=== PATIENT | female | born 1965 | race Caucasian/White ===

== ENCOUNTER 2016-09-04 15:43 | Emergency (ER) | payer BC, MEDICAID ==
[2016-09-04] MEDS ORDERED: BACITRACIN ZINC OINTMENT 15 GM TP ONE (16:22)
--- NOTE | 2016-09-04 16:24 | ER Document Report ---
ED Head/Face/Scalp Injury - General Chief Complaint: Head Injury without LOC Stated Complaint: FALL;HEAD INJURY Time Seen by Provider: 09/04/16 16:16 Notes: Patient is a 51-year-old female, past medical history hypertension, left ear implant, presents after she slipped off the back of a [employer] truck and landed on her forehead. Also complaining of left big toe pain. She denies LOC, nausea , vomiting, neck pain, blood thinner use, blurry vision, focal weakness, numbness, ataxia or abdominal pain. TRAVEL OUTSIDE OF THE [place] IN LAST 30 DAYS: No - Related Data Allergies/Adverse Reactions: pork derived (porcine) Allergy (Severe, Verified 09/04/16 16:14) Anaphylaxis amlodipine Allergy (Verified 09/04/16 16:14) Swelling of hands and/or feet budesonide [From Symbicort] Allergy (Verified 09/04/16 16:14) Shortness of Breath duloxetine Allergy (Verified 09/04/16 16:14) Shortness of Breath formoterol [From Symbicort] Allergy (Verified 09/04/16 16:14) Shortness of Breath iodine Allergy (Verified 09/04/16 16:14) Hives Penicillins Allergy (Verified 09/04/16 16:14) theophylline Allergy (Verified 09/04/16 16:14) cefdinir [From Omnicef] Adverse Reaction (Verified 09/04/16 16:14) Diarrhea fluoxetine Adverse Reaction (Verified 09/04/16 16:14) Anxiety metformin Adverse Reaction (Verified 09/04/16 16:14) rosuvastatin Adverse Reaction (Verified 09/04/16 16:14) sertraline [From Zoloft] Adverse Reaction (Verified 09/04/16 16:14) Diarrhea Tetracyclines Adverse Reaction (Verified 09/04/16 16:14) VOMITING tramadol Adverse Reaction (Verified 09/04/16 16:14) zafirlukast Adverse Reaction (Verified 09/04/16 16:14) Dizziness Past Medical History - General Information source: Patient - Social History Smoking Status: Never Smoker Chew tobacco use (# tins/day): No Frequency of alcohol use: Rare Drug Abuse: None Family History: Reviewed & Not Pertinent Patient has suicidal ideation: No Patient has homicidal ideation: No Pulmonary Medical History: Reports: Hx Asthma Renal/ Medical History: Denies: Hx Peritoneal Dialysis GI Medical History: Reports: Hx Gastroesophageal Reflux Disease Musculoskeltal Medical History: Reports Hx Arthritis Review of Systems - Review of Systems Notes: REVIEW OF SYSTEMS: CONSTITUTIONAL: -fevers, -chills EENT: -eye pain, -difficulty swallowing, -nasal congestion CARDIOVASCULAR:-chest pain, -syncope. RESPIRATORY: -cough, -SOB GASTROINTESTINAL: -abdominal pain, - nausea, -vomiting, -diarrhea GENITOURINARY: -dysuria, -hematuria MUSCULOSKELETAL: -back pain, -neck pain SKIN: -rash or skin lesions. HEMATOLOGIC: -easy bruising or bleeding. LYMPHATIC: -swollen, enlarged glands. NEUROLOGICAL: -altered mental status or loss of consciousness, +headache, - neurologic symptoms PSYCHIATRIC: -anxiety, -depression. ALL OTHER SYSTEMS REVIEWED AND NEGATIVE. Physical Exam - Vital signs Vitals: Temp Pulse Resp BP Pulse Ox 97.8 F 98 18 126/80 H 98 09/04/16 16:08 09/04/16 16:08 09/04/16 16:08 09/04/16 16:08 09/04/16 16:08 - Notes Notes: PHYSICAL EXAMINATION: GENERAL: Well-appearing, well-nourished and in no acute distress. HEAD: Forehead contusion and abrasions EYES: Pupils equal round and reactive to light, extraocular movements intact, sclera anicteric, conjunctiva are normal. ENT: nares patent, oropharynx clear without exudates. Moist mucous membranes. NECK: Normal range of motion, supple without lymphadenopathy LUNGS: Breath sounds clear to auscultation bilaterally and equal. No wheezes rales or rhonchi. HEART: Regular rate and rhythm without murmurs ABDOMEN: Soft, nontender, normoactive bowel sounds. No guarding, no rebound. No masses appreciated. EXTREMITIES: Contusion over left big toe, normal range of motion, no pitting or edema. No cyanosis. NEUROLOGICAL: Cranial nerves grossly intact. Normal speech, normal gait. Normal sensory and motor exams. PSYCH: Normal mood, normal affect. SKIN: Superficial abrasions and contusion over forehead Course - Re-evaluation Re-evalutation: Patient appears well. Her head CT is negative for any skull fractures or intracranial bleed. Hematoma and abrasions cleaned and bacitracin applied. She does have a distal left toe fracture. Toes robe taped and will have her follow-up with orthopedics and her primary care physician. - Vital Signs Vital signs: Temp Pulse Resp BP Pulse Ox 97.8 F 98 18 126/80 H 98 09/04/16 16:08 09/04/16 16:08 09/04/16 16:08 09/04/16 16:08 09/04/16 16:08 - Diagnostic Test Radiology reviewed: Image reviewed, Reports reviewed Radiology results interpreted by me: Left foot x-ray: non-displaced distal great toe fracture Head CT: NAD Discharge - Discharge Clinical Impression: Fractured great toe Qualifiers: Encounter type: initial encounter Fracture type: closed Phalanx: distal Fracture alignment: nondisplaced Laterality: left Qualified Code(s): S92.425A - Nondisplaced fracture of distal phalanx of left great toe, initial encounter for closed fracture Traumatic hematoma of forehead Qualifiers: Encounter type: initial encounter Qualified Code(s): S00.83XA - Contusion of other part of head, initial encounter Condition: Stable Disposition: HOME, SELF-CARE Additional Instructions: Fractured Toe You have fractured your toe. Although this fracture doesn't need a cast or splint, emergency evaluation was needed to assess the straightness of the bones and joints. Reduction ("setting") is necessary for toe fractures which are crooked or twisted. A toe fracture will heal in about three weeks. Usually, the fractured toe is taped to the next toe. The second toe acts as a moving splint to protect the broken one. Ice and elevation help during the first 48 hours. You may need crutches at first if walking is painful. When you begin walking, be careful NOT to do things that hurt. If weight bearing is not comfortable within a few days, you may require a special shoe, walking boot, or cast. Call the doctor or return at once if severe swelling, severe pain, or numbness develop in the toe, or if you suspect you may have re-injured it. Contusion Your injury has resulted in a contusion -- a crushing of the deep tissues. No injury to important structures was detected during the physician's exam. Contusions vary in the amount of pain they cause, and in the length of time required for healing. Typically, the area will become bruised, and will remain painful to touch for two or three weeks. However, most patients are back to working and playing within a few days. After the initial period of rest and cold-packs, your symptoms (together with the doctor's recommendations) will determine how rapidly you can get back to full activity. Usually this means "do what feels okay, but don't do things that hurt." If re-examination was recommended, it's important to follow up as instructed. Call the doctor or return any time if pain increases, if swelling becomes severe, if you develop numbness or weakness in an injured extremity, or if any other alarming symptoms occur.
--- NOTE | 2016-09-04 16:43 | RADIOLOGY REPORT (SQ) ---
EXAM DESCRIPTION: FOOT LEFT COMPLETE COMPLETED DATE/TIME: 09/04/2016 4:34 pm REASON FOR STUDY: left big toe injury COMPARISON: None. NUMBER OF VIEWS: Three views. TECHNIQUE: AP, lateral and oblique radiographic images acquired of the left foot. LIMITATIONS: None. FINDINGS: MINERALIZATION: Normal. BONES: There is a subtle essentially nondisplaced fracture of the distal phalanx of the great toe. F racture is lateral in location and does extend through the articular surface. JOINTS: No effusions. SOFT TISSUES: No soft tissue swelling. No foreign body. OTHER: No other significant finding. IMPRESSION: Fracture of the distal phalanx of the great toe as described. TECHNICAL DOCUMENTATION: JOB ID: [id number] [email or web address]- All Rights Reserved
--- NOTE | 2016-09-04 17:01 | RADIOLOGY REPORT (SQ) ---
EXAM DESCRIPTION: CT HEAD WITHOUT COMPLETED DATE/TIME: 09/04/2016 4:50 pm REASON FOR STUDY: head injury COMPARISON: None. TECHNIQUE: Axial images acquired through the brain without intravenous contrast. Images reviewed wi th bone, brain and subdural windows. Images stored on PACS. All CT scanners at this facility use dose modulation, iterative reconstruction, and/or weight based d osing when appropriate to reduce radiation dose to as low as reasonably achievable (ALARA). [facility]: Dose Right [facility]: CareDose [facility]: Dose Right [facility]: Teradose 4D [facility]: [employer] RADIATION DOSE: 64.61 mGy. LIMITATIONS: None. FINDINGS: VENTRICLES: Normal size and contour. CEREBRUM: No masses. No hemorrhage. No midline shift. Normal tafoya/white matter differentiation. N o evidence for acute infarction. CEREBELLUM: No masses. No hemorrhage. No alteration of density. No evidence for acute infarction. EXTRAAXIAL SPACES: No fluid collections. No masses. ORBITS AND GLOBE: No intra- or extraconal masses. Normal contour of globe without masses. CALVARIUM: No fracture. PARANASAL SINUSES: No fluid or mucosal thickening. SOFT TISSUES: No mass or hematoma. OTHER: No other significant finding. IMPRESSION: NORMAL BRAIN CT WITHOUT CONTRAST. TECHNICAL DOCUMENTATION: JOB ID: [id number] Quality ID # [id number]: Final reports with documentation of one or more dose reduction techniques (e.g., Au tomated exposure control, adjustment of the mA and/or kV according to patient size, use of iterative reconstruction technique) 2010 [employer]- All Rights Reserved
[2016-09-04 17:25] VITALS: BP 125/80
== END 2016-09-04 17:16 | disposition home or self-care (01) ==
LOC: ER 15:43
DX: S92.425A Nondisplaced fracture of distal phalanx of left great toe, initial encounter for closed fracture (principal); S00.83XA Contusion of other part of head, initial encounter; W17.89XA Other fall from one level to another, initial encounter; J45.909 Unspecified asthma, uncomplicated; Z88.8 Allergy status to other drugs, medicaments and biological substances; Z88.0 Allergy status to penicillin; Z88.1 Allergy status to other antibiotic agents; Z87.892 Personal history of anaphylaxis; Z91.018 Allergy to other foods
CPT/HCPCS: 99284; 73630; 70450; J3490

== ENCOUNTER 2018-01-29 19:57 | Emergency (ER) | payer BC ==
--- NOTE | 2018-01-29 20:25 | ER Document Report ---
ED Medical Screen (RME) - General Chief Complaint: Headache Stated Complaint: HEADACHE Time Seen by Provider: 01/29/18 20:10 Mode of Arrival: Ambulatory Information source: Patient Notes: 52-year-old female presents emergency department with complaints of a headache for the last 7 days. Patient states that she saw her primary care physician a week ago for asthma. She was started on prednisone. Patient states that she started the prednisone and the headache began. She states that over the last 7 days the headache has been gradually worsening in intensity. She describes it as a throbbing sensation that starts in the occipital area and radiates to the forehead. She denies any alleviating or exacerbating factors. Patient began having associated chills, nausea, ataxia, and difficulty concentrating today. I have greeted and performed a rapid initial assessment of this patient. A comprehensive ED assessment and evaluation of the patient, analysis of test results and completion of the medical decision making process will be conducted by additional ED providers. PHYSICAL EXAMINATION: GENERAL: Well-appearing, well-nourished and in no acute distress. HEAD: Atraumatic, normocephalic. EYES: Pupils equal round extraocular movements intact, conjunctiva are normal. ENT: Nares patent NECK: Normal range of motion LUNGS: No respiratory distress Musculoskeletal: Normal range of motion NEUROLOGICAL: Normal speech, finger to nose normal. PSYCH: Normal mood, normal affect. SKIN: Warm, Dry, normal turgor, no rashes or lesions noted. TRAVEL OUTSIDE OF THE [place] IN LAST 30 DAYS: No - Related Data Allergies/Adverse Reactions: pork derived (porcine) Allergy (Severe, Verified 09/04/16 16:14) Anaphylaxis amlodipine Allergy (Verified 09/04/16 16:14) Swelling of hands and/or feet budesonide [From Symbicort] Allergy (Verified 09/04/16 16:14) Shortness of Breath duloxetine Allergy (Verified 09/04/16 16:14) Shortness of Breath formoterol [From Symbicort] Allergy (Verified 09/04/16 16:14) Shortness of Breath iodine Allergy (Verified 09/04/16 16:14) Hives Penicillins Allergy (Verified 09/04/16 16:14) theophylline Allergy (Verified 09/04/16 16:14) cefdinir [From Omnicef] Adverse Reaction (Verified 09/04/16 16:14) Diarrhea fluoxetine Adverse Reaction (Verified 09/04/16 16:14) Anxiety metformin Adverse Reaction (Verified 09/04/16 16:14) rosuvastatin Adverse Reaction (Verified 09/04/16 16:14) sertraline [From Zoloft] Adverse Reaction (Verified 09/04/16 16:14) Diarrhea Tetracyclines Adverse Reaction (Verified 09/04/16 16:14) VOMITING tramadol Adverse Reaction (Verified 09/04/16 16:14) zafirlukast Adverse Reaction (Verified 09/04/16 16:14) Dizziness Past Medical History Pulmonary Medical History: Reports: Hx Asthma Renal/ Medical History: Denies: Hx Peritoneal Dialysis GI Medical History: Reports: Hx Gastroesophageal Reflux Disease Musculoskeltal Medical History: Reports Hx Arthritis Physical Exam - Vital signs Vitals: Temp Pulse Resp BP Pulse Ox 98 F 91 20 135/81 H 100 01/29/18 19:58 01/29/18 19:58 01/29/18 19:58 01/29/18 19:58 01/29/18 19:58 Course - Vital Signs Vital signs: Temp Pulse Resp BP Pulse Ox 98 F 91 18 135/81 H 100 01/29/18 19:58 01/29/18 20:07 01/29/18 20:07 01/29/18 20:07 01/29/18 20:07 Doctor's Discharge - Discharge Referrals: DYANA KILPATRICK MD [Primary Care Provider] - Follow up as needed
[2018-01-29 20:57] LABS: ABSOLUTE BASOPHILS # (AUTO) 0.1 10^3/uL (0.0-0.2); ABSOLUTE EOSINOPHILS # (AUTO) 0.3 10^3/uL (0.0-0.6); ABSOLUTE LYMPHOCYTES (AUTO) 4.3 10^3/uL (0.5-4.7); ABSOLUTE MONOCYTES (AUTO) 0.6 10^3/uL (0.1-1.4); ABSOLUTE NEUT (AUTO) 6.8 10^3/uL (1.7-8.2); EOSINOPHILS % (AUTO) 2.5 % (0-6); HEMATOCRIT 39.1 % (36.0-47.0); HEMOGLOBIN 12.9 g/dL (12.0-15.5); LYMPHOCYTES % (AUTO) 35.3 % (13-45); MEAN CORPUSCULAR HEMOGLOBIN 25.9 pg (27.0-33.4); MEAN CORPUSCULAR HGB CONC 33.1 g/dL (32.0-36.0); MEAN CORPUSCULAR VOLUME 78 fl (80-97); MONOCYTES % (AUTO) 5.1 % (3-13); PLATELET COUNT 395 10^3/uL (150-450); RED BLOOD COUNT 4.99 10^6/uL (3.72-5.28); RED CELL DISTRIBUTION WIDTH 15.5 % (11.5-14.0); SEGMENTED NEUTROPHILS % (AUTO) 56.1 % (42-78); TOTAL CELLS COUNTED % (AUTO) 100 %; WHITE BLOOD COUNT 12.1 10^3/uL (4.0-10.5)
--- NOTE | 2018-01-29 21:09 | RADIOLOGY REPORT (SQ) ---
EXAM DESCRIPTION: CT HEAD WITHOUT IV CONTRAST COMPLETED DATE/TME: 01/29/2018 20:19 CLINICAL HISTORY: 52 years, Female, headache COMPARISON: None. TECHNIQUE: Axial images of the head were performed without the use of intravenous contrast, with sagittal and coronal reformatted images. Images stored on PACS. All CT scanners at this facility use dose modulation, iterative reconstruction, and/or weight based dosing when appropriate to reduce radiation dose to as low as reasonably achievable (ALARA). [facility]: Dose Right [facility]: CareDose [facility]: Dose Right [facility]: Teradose 4D [facility]: [employer] LIMITATIONS: None. FINDINGS: No evidence of acute hemorrhage or infarct. No evidence of mass or hydrocephalus. The visualized paranasal sinuses are clear. IMPRESSION: No acute finding. TECHNICAL DOCUMENTATION: Quality ID # 436: Final reports with documentation of one or more dose reduction techniques (e.g., Automated exposure control, adjustment of the mA and/or kV according to patient size, use of iterative reconstruction technique) 2010 [employer]- All Rights Reserved
[2018-01-29 22:36] LABS: ALANINE AMINOTRANSFERASE 41 U/L (9-52); ALBUMIN 4.1 g/dL (3.5-5.0); ALKALINE PHOSPHATASE 84 U/L (38-126); ANION GAP 10 (5-19); ASPARTATE AMINO TRANSFERASE 22 U/L (14-36); BILIRUBIN,DIRECT 0.2 mg/dL (0.0-0.4); BILIRUBIN,TOTAL 0.6 mg/dL (0.2-1.3); BLOOD UREA NITROGEN 15 mg/dL (7-20); CALCIUM 9.7 mg/dL (8.4-10.2); CARBON DIOXIDE 32 mmol/L (22-30); CHLORIDE 103 mmol/L (98-107); GLUCOSE 98 mg/dL (75-110); POTASSIUM 4.9 mmol/L (3.6-5.0); SODIUM 145.1 mmol/L (137-145); TOTAL PROTEIN 6.9 g/dL (6.3-8.2)
[2018-01-29] MEDS ORDERED: DIPHENHYDRAMINE HCL 50 MG/ML VIAL IM ONE (23:07)
[2018-01-29] MEDS ORDERED: METOCLOPRAMIDE HCL INJ/PF 10 MG/2 ML SDV IM ONE (23:07)
--- NOTE | 2018-01-30 00:36 | ER Document Report ---
ED General - General Chief Complaint: Headache Stated Complaint: HEADACHE Time Seen by Provider: 01/29/18 20:10 Mode of Arrival: Ambulatory Notes: Patient is a 52-year-old female presents with complaint of a headache. Headache is been intermittent for 2 days. She says she was recently started on methylprednisolone due to exacerbation of asthma. She says the headache started after she started that medication. She says that she is finished a course of medication but she still getting headaches and therefore is come to the ER for evaluation. She has previous history of tension headaches but says this feels a bit different. She said these go mainly into the top of her head and are pressure type sensation. She says that they are worse when she stands up. No focal weakness or numbness. She says one time she did notice that the focus of her vision was a bit off however she has not had any further blurred vision or difficulty seeing. Headaches are gradual onset and gradual worsening over time. They are intermittent. No associated fevers. No recent trauma. TRAVEL OUTSIDE OF THE [place] IN LAST 30 DAYS: No - Related Data Allergies/Adverse Reactions: pork derived (porcine) Allergy (Severe, Verified 09/04/16 16:14) Anaphylaxis amlodipine Allergy (Verified 09/04/16 16:14) Swelling of hands and/or feet budesonide [From Symbicort] Allergy (Verified 09/04/16 16:14) Shortness of Breath duloxetine Allergy (Verified 09/04/16 16:14) Shortness of Breath formoterol [From Symbicort] Allergy (Verified 09/04/16 16:14) Shortness of Breath iodine Allergy (Verified 09/04/16 16:14) Hives Penicillins Allergy (Verified 09/04/16 16:14) theophylline Allergy (Verified 09/04/16 16:14) cefdinir [From Omnicef] Adverse Reaction (Verified 09/04/16 16:14) Diarrhea fluoxetine Adverse Reaction (Verified 09/04/16 16:14) Anxiety metformin Adverse Reaction (Verified 09/04/16 16:14) rosuvastatin Adverse Reaction (Verified 09/04/16 16:14) sertraline [From Zoloft] Adverse Reaction (Verified 09/04/16 16:14) Diarrhea Tetracyclines Adverse Reaction (Verified 09/04/16 16:14) VOMITING tramadol Adverse Reaction (Verified 09/04/16 16:14) zafirlukast Adverse Reaction (Verified 09/04/16 16:14) Dizziness Past Medical History - General Information source: Patient - Social History Smoking Status: Never Smoker Frequency of alcohol use: None Drug Abuse: None Family History: Reviewed & Not Pertinent Patient has suicidal ideation: No Patient has homicidal ideation: No Pulmonary Medical History: Reports: Hx Asthma Renal/ Medical History: Denies: Hx Peritoneal Dialysis GI Medical History: Reports: Hx Gastroesophageal Reflux Disease Musculoskeletal Medical History: Reports Hx Arthritis Past Surgical History: Reports: Hx Orthopedic Surgery - right knee, Hx Tonsillectomy Review of Systems - Review of Systems Notes: My Normal Review Basic REVIEW OF SYSTEMS: CONSTITUTIONAL : Denies fever, chills, or sweats. Denies recent illness. EENT: Denies eye, ear, throat, or mouth pain or symptoms. Denies nasal or sinus congestion. CARDIOVASCULAR: Denies chest pain. RESPIRATORY: Denies cough, cold, or chest congestion. Denies shortness of breath, difficulty breathing, or wheezing. GASTROINTESTINAL: Denies abdominal pain. Denies nausea, vomiting, or diarrhea. MUSCULOSKELETAL: Denies neck or back pain or joint pain or swelling. SKIN: Denies rash or skin lesions. NEUROLOGICAL: Denies altered mental status or loss of consciousness. Has a headache. Denies weakness or paralysis or loss of use of either side. Denies problems with gait or speech. Denies sensory or motor loss. ALL OTHER SYSTEMS REVIEWED AND NEGATIVE. Physical Exam - Vital signs Vitals: Temp Pulse Resp BP Pulse Ox 98 F 91 20 135/81 H 100 01/29/18 19:58 01/29/18 19:58 01/29/18 19:58 01/29/18 19:58 01/29/18 19:58 - Notes Notes: General Appearance: Well nourished, alert, cooperative, no acute distress, mild obvious discomfort. Vitals: reviewed, See vital signs table. Head: no swelling or tenderness to the head Eyes: PERRL, EOMI, Conjuctiva clear. No evidence of optic disc edema on funduscopic exam. Mouth: No decreasd moisture Throat: No tonsillar inflammation, No airway obstruction, No lymphadenopathy Neck: Supple, no neck tenderness, No thyromegaly Lungs: No wheezing, No rales, No rhonci, No accessory muscle use, good air exchange bilaterally. Heart: Normal rate, Regular rythm, No murmur, no rub Abdomen: Normal BS, soft, No rigidity, No abdominal tenderness, No guarding, no rebound, no abdominal masses, no organomegaly Extremities: strength 5/5 in all extremities, good pulses in all extremities, no swelling or tenderness in the extremities, no edema. Skin: warm, dry, appropriate color, no rash Neuro: speech clear, oriented x 3, normal affect, responds appropriately to questions. Renal nerves II through XII are intact. Distal sensation intact. Normal Romberg. Course - Re-evaluation Re-evalutation: 01/30/18 08:58 Patient looks well on exam. She does not have a neurologic deficits. Because of the mention of some brief difficulty focusing her vision at one time I did obtain a funduscopic exam and saw no evidence of optic disc edema. Headache was improved with Reglan. CT scan was ordered in triage and was negative. I do not suspect subarachnoid hemorrhage and that this is an intermittent gradual onset headache. I will refer her to neurology due to the recurrence of this headache. I am not convinced this is related to the prednisone even though the symptoms started when she first started the prednisone. Not exactly sure why the methylprednisolone caused her to have these headaches. Encourage her return to ER if she has recurrence of headaches not improving with medication, sudden onset severe headache, vomiting, or she feels unwell. Patient agrees with plan will be discharged home. Dictation of this chart was performed using voice recognition software; therefore, there may be some unintended grammatical errors. - Vital Signs Vital signs: Temp Pulse Resp BP Pulse Ox 98 F 88 17 131/77 H 99 01/29/18 19:58 01/30/18 00:45 01/30/18 00:45 01/30/18 00:45 01/30/18 00:45 - Laboratory Result Diagrams: 01/29/18 20:47 01/29/18 21:40 Laboratory results interpreted by me: 01/29/18 01/29/18 20:47 21:40 WBC 12.1 H MCV 78 L MCH 25.9 L RDW 15.5 H Sodium 145.1 H Carbon Dioxide 32 H Discharge - Discharge Clinical Impression: Headache Qualifiers: Headache type: unspecified Headache chronicity pattern: episodic headache Intractability: not intractable Qualified Code(s): R51 - Headache Disposition: HOME, SELF-CARE Additional Instructions: Please return to the ER immediately if you develop worsening headache, vomiting , blurred vision, fevers, that you are worsening. Please call to follow up with the neurologist, Dr. Glasgow. Prescriptions: Metoclopramide HCl [Reglan 10 mg Tablet] 1 tab PO ASDIR PRN #25 tablet PRN Reason: Referrals: GALO GLASGOW MD [NO LOCAL MD] - Follow up in 3-5 days (call office in the am for a close follow up appointment)
[2018-01-30 00:47] VITALS: BP 131/77
== END 2018-01-30 00:45 | disposition home or self-care (01) ==
LOC: ER 19:57
DX: R51 Headache (principal); Z88.0 Allergy status to penicillin
CPT/HCPCS: 99284; 96372; 36415; 85025; 80053; 70450; J1200; J2765